=== PATIENT | female | born 1990 | race Caucasian/White ===

== ENCOUNTER 2017-02-08 06:11 | Inpatient (IN) | payer BC ==
[2017-02-08] MEDS ORDERED: LIDOCAINE HCL 50 ML VIAL PERI PRN (07:13)
[2017-02-08] MEDS ORDERED: OXYTOCIN/DEXTROSE 5%-WATER 30 UNITS/500 ML BAG IV ONE ×2 (07:13→17:21)
[2017-02-08] MEDS ORDERED: RINGERS SOLUTION,LACTATED 1,000 ML IV ONE (07:13)
[2017-02-08] MEDS: DEXTROSE 5%-LACTATED RINGERS 1,000 ML IV PRN ×2 (07:49→12:57)
--- NOTE | 2017-02-08 11:51 | PN ---
Progess Note - Interim Narrative: 02/08/17 11:48 Patient tolerating contractions well Vital signs stable. Pitocin at 12 mu/min. FHT: 135 baseline, reassuring Contractions q 2-3 min Cervix: 4/90/-2, AROM-clear at 1050. Impression: Intrauterine at 40 1/7 weeks elective induction of labor Plan: Continue present plan
[2017-02-08] MEDS ORDERED: BUPIVACAINE HCL/0.9 % NACL/PF 250 ML EP PRN (12:23)
[2017-02-08] MEDS ORDERED: BUPIVACAINE HCL/PF 30 ML VIAL EP ONE (12:23)
[2017-02-08] MEDS ORDERED: ONDANSETRON HCL/PF 2 MG/ML VIAL IV PRN (12:23)
[2017-02-08] MEDS ORDERED: NALOXONE HCL 1 MG/1 ML SYRG IV PRN (12:23)
--- NOTE | 2017-02-08 12:47 | OR ---
Anesthesia Procedure Note - Anesthesia Procedure Note Date of Service: 02/08/17 Narrative: Vital Signs - Last Taken Temp 37.3 C 02/08/17 12:25 Pulse 65 02/08/17 12:25 Resp 18 02/08/17 12:25 BP 138/73 02/08/17 12:25 Pulse Ox 100 02/08/17 12:25 02/08/17 12:47 ANESTHESIA PROCEDURE NOTE Date of Procedure: 02/08/2017. Time of procedure: 1230. Performed by: Hero Fabian CRNA Mgmt Specialist: None. Preprocedure diagnosis: Active labor. Post procedure diagnosis: Same. Procedure: Insertion of labor epidural. Indications: The patient is a 26 -year-old female in active labor requesting labor epidural for pain management. Findings: See below. Details of the procedure: The patient was placed in a sitting position. DuraPrep as well as Betadine swabs 3 was applied to the patient's back. Patient was then draped in a sterile fashion. Lidocaine 1% was infiltrated to the skin and subcutaneous tissues at the level of the L3 4 interspace. The epidural space was identified using a 18-gauge Tuohy needle with loss-of- resistance technique. Epidural catheter was inserted to a depth of 13 centimeters at skin. Negative test dose was elicited using 3 mL of 1.5% preservative-free lidocaine plus epinephrine 1 200,000. The epidural catheter was then taped and secured in place. A loading dose of 8 mL of 0.25% preservative-free bupivacaine was administered to the epidural catheter after negative aspiration for blood and CSF. EBL: Minimal. Fluids: N/A. Specimen: N/A. Post procedure condition: The patient tolerated the procedure well. No complications were noted. Thank you for this consultation. Hero Fabian CRNA
[2017-02-08] MEDS ORDERED: SENNOSIDES 8.6 MG TABLET PO PRN (17:21)
[2017-02-08] MEDS ORDERED: BISACODYL 10 MG SUPP.RECT RC PRN (17:21)
[2017-02-08] MEDS ORDERED: GLYCERIN/WITCH HAZEL LEAF 40 APPL BOX TP PRN (17:21)
[2017-02-08] MEDS ORDERED: HYDROCORTISONE 30 APPL TUBE TP PRN (17:21)
[2017-02-08] MEDS ORDERED: BENZOCAINE/MENTHOL 81 SPRAY CAN TP PRN (17:21)
[2017-02-08] MEDS ORDERED: oxyCODONE HCL/ACETAMINOPHEN 1 TAB TABLET PO PRN ×2 (17:21)
--- NOTE | 2017-02-08 17:23 | OR ---
Operative Report - Dictated Report Narrative: Spontaneous vaginal delivery of viable female in MATT position at 1703 on 02/08/2017 with Apgars 8 and 9, weighing 3486 g area nuchal cord 1 reduced with delivery of head. Cord clamping delayed approximately 1 minute Placenta delivered complete, intact, with three vessel cord Estimated blood loss: less than 50 ml Lacerations: Bilateral first-degree labial abrasion/laceration with no repair needed History for MU Definition: * The number of deliveries resulting in a live the patient experienced prior to current hospitalization * The previous delivery of live twins or any live multiple gestation is considered one live event. *If primagravida or nulliparous is documented select zero for the number of previous live births. Live Events: 0
[2017-02-08] MEDS: IBUPROFEN 800 MG TABLET PO PRN (18:59)
[2017-02-08] MEDS: DOCUSATE SODIUM 100 MG CAPSULE PO SCH (21:53)
[2017-02-09] MEDS: ASCORBIC ACID 500 MG TABLET PO SCH (08:16)
[2017-02-09] MEDS: PRENATAL VIT#96/FERROUS FUM/FA 1 TAB TABLET PO SCH (08:16)
[2017-02-09] MEDS: CYANOCOBALAMIN 1,000 MCG TABLET PO SCH (08:16)
[2017-02-09] MEDS: DOCUSATE SODIUM 100 MG CAPSULE PO SCH (08:16)
--- NOTE | 2017-02-09 09:24 | PN ---
Subjective - Date and Time Seen Date: 02/09/17 Time: 09:23 Objective - Vitals Vitals: Last Vital Signs Temp 36.6 C 02/09/17 07:37 Pulse 67 02/09/17 07:37 Resp 18 02/09/17 07:37 BP 140/67 02/09/17 07:37 Pulse Ox 100 02/09/17 07:37 Patient denies complaints. Lochia wnl Abdomen - soft, nontender Uterus - firm, at umbilicus - 1 No calf tenderness Impression: day #1 - s/p spontaneous vaginal delivery. Plan: Continue routine care
[2017-02-09] MEDS: IBUPROFEN 800 MG TABLET PO PRN (18:54)
[2017-02-10] MEDS: DOCUSATE SODIUM 100 MG CAPSULE PO SCH ×2 (00:46→09:00)
[2017-02-10] MEDS: IBUPROFEN 800 MG TABLET PO PRN ×2 (00:56→07:30)
[2017-02-10 07:18] VITALS: BP 117/84
[2017-02-10] MEDS: ASCORBIC ACID 500 MG TABLET PO SCH (09:00)
[2017-02-10] MEDS: CYANOCOBALAMIN 1,000 MCG TABLET PO SCH (09:01)
[2017-02-10] MEDS: PRENATAL VIT#96/FERROUS FUM/FA 1 TAB TABLET PO SCH (09:01)
== END 2017-02-10 15:50 | disposition home or self-care (01) | DRG 775 ==
LOC: OB 06:11
PROVIDERS: ADMIT Obstetrics & Gynecology; ATTEND Obstetrics & Gynecology
PROC: 10E0XZZ Delivery of Products of Conception, External Approach (ICD-10-PCS; principal; 2017-02-08)
PROC: 3E033VJ Introduction of Other Hormone into Peripheral Vein, Percutaneous Approach (ICD-10-PCS; 2017-02-08)
PROC: 10907ZC Drainage of Amniotic Fluid, Therapeutic from Products of Conception, Via Natural or Artificial Opening (ICD-10-PCS; 2017-02-08)
PROC: 4A1HXCZ Monitoring of Products of Conception, Cardiac Rate, External Approach (ICD-10-PCS; 2017-02-08)
PROC: 3E0S3CZ (ICD-10-PCS; 2017-02-08)
DX: O69.81X0 Labor and delivery complicated by cord around neck, without compression, not applicable or unspecified (principal); O70.0 First degree perineal laceration during delivery; Z3A.40 40 weeks gestation of pregnancy; Z37.0 Single live birth

== ENCOUNTER 2017-04-09 16:36 | Emergency (ER) | payer BC ==
[2017-04-09] MEDS ORDERED: IBUPROFEN 600 MG TABLET PO ONE (17:01)
--- NOTE | 2017-04-09 17:02 | ERNOTE ---
ER Female HPI Date of Service: 04/09/17 Stated Complaint: ABD PAIN - IUD ISSUE ?? Time Seen by Provider: 04/09/17 16:49 Source: patient, RN notes reviewed, past records Exam Limitations: no limitations Immunizations: IMMUNIZATION HX Immunizations Up to Date Yes History of Influenza Vaccine No Allergies/Adverse Reactions: Allergies No Known Allergies Allergy (Verified 04/09/17 16:43) Home Medications: HOME MEDICATIONS Escitalopram Oxalate [Lexapro] 10 mg PO DAILY 04/09/17 [Last Taken Unknown] Ibuprofen [Motrin] 600 mg PO Q6H PRN #40 tab 04/09/17 [Last Taken Unknown] Nitrofurantoin Macrocrystal [Nitrofurantoin] 100 mg PO BID #10 capsule 04/09/17 [Last Taken Unknown] - History of Present Illness Narrative: 26 y/o female ambulatory to the ED for pelvic pain and bleeding that has been ongoing since she had a Mirena inserted on 03/10/17. Her pain became so severe today that she vomited. She was 1 month post- when the IUD was placed. She reports being sexually active twice in the past month with the last time being 4 days ago. She last took ibuprofen for pain around 0900 this morning. Timing: Present: constant Quality: Present: severe, cramping Onset Location: Present: suprapubic, vaginal Radiation: Present: none Prior Abdominal Problems: Present: none Sexual [place] History: Present: less than 2 months ago, single partner Associated Symptoms: Present: diaphoresis, nausea, vomiting. Absent: fever/ chills, dysuria, urinary frequency, low back pain Review of Systems - Review of Systems Constitutional: Absent: fever, chills EYE: Present: no symptoms reported ENT: Present: no symptoms reported Respiratory: Present: no symptoms reported Cardiology: Present: no symptoms reported Gastrointestinal/Abdominal: Present: nausea, vomiting. Absent: diarrhea, constipation, abdominal pain, eating less, drinking less Genitourinary: Present: pain. Absent: frequency, dysuria, decreased urinary output, discharge Musculoskeletal: Absent: back pain, muscle pain Skin: Absent: rash, lesions, lumps Neurological: Absent: headache, dizziness/light-headedness, weakness Endocrine: Present: no symptoms reported Hematologic/Lymphatic: Absent: easy bruising, easy bleeding Psych: Present: depressed - Patient's Past Medical History Patient History - Medical: Depression, Migraines, Obesity Patient History - Cardiac/Respiratory: No pertinent hx Patient History - Cancer: No Hx of Cancer Patient History - Surgical Procedures: Ear Tubes, T & A LMP (Calendar): 03/16/17 - Social History Living Situations: home Abuse History: No History of abuse Psych History: No pertinent hx Smoking Status: Never smoker Have you smoked in the past 12 months: No Alcohol Use: none Drug Use: none - Immunizations Immunizations Up to Date: Yes History of Influenza Vaccine: No Physical Exam - Physical Exam General Appearance: Present: alert, no apparent distress, anxious, obese Eye Exam: Normal inspection: bilateral Neck: Present: normal inspection, nontender, supple Respiratory: Present: no respiratory distress, normal breath sounds, no accessory muscle use, lungs clear Cardiovascular/Chest: Present: regular rate, rhythm, no murmur Gastrointestinal/Abdominal: Present: normal bowel sounds, nontender, nondistended, soft. Absent: guarding, rebound, mass Back Exam: Present: normal inspection, no CVA tenderness Extremity Exam: Present: normal inspection, normal range of motion, no edema Neurological Exam: Present: alert, oriented, normal mood/affect Skin Exam: Present: normal color, warm/dry ED Progress - Results and Orders Patient's Lab Results:: I have reviewed the patient's lab results. - Vital Signs Patient's Vital Signs:: I have reviewed the patient's vital signs. Vital Signs: Vital Signs 04/09/17 16:40 Temperature 36.7 C Pulse Rate 68 Respiratory 14 Rate Blood Pressure 128/87 O2 Sat by Pulse 98 Oximetry - CT/Ultrasound CT/Ultrasound Narrative: US Pelvic Complete *, US Transvaginal * Transabdominal Pelvic Ultrasound: Uterus: 8.6 cm in length by 4.8 cm AP by 6.3 cm transverse. Anteverted. No focal uterine mass. It was difficult to visualize the endometrial stripe or to visualize the IUD positively within the endometrial canal. Therefore, transvaginal imaging was performed. Right ovary: 2.8 x 2.8 x 3.1 cm. No dominant cystic or solid mass. Left ovary: Not visualized. Most likely obscured by bowel gas Transvaginal Pelvic Ultrasound: Uterus: 9.5 cm in length by 4.8 cm AP by 5.8 cm transverse. Endometrial stripe/canal is obscured by echogenic linear structure with posterior shadowing consistent with an IUD/foreign body, with the transversely oriented limbs located at the level of the fundus. There is no definite signs of malpositioning of the IUD. Right ovary: 3.5 x 3.3 x 2.7 cm. Ovarian volume of 16.7 mL. No dominant cystic or solid mass. Left ovary: 2.4 x 2.8 x 1.9 cm. Ovarian volume of 6.7 mL. No dominant cystic or solid mass. No free fluid in the cul-de-sac. Color imaging of the ovaries demonstrate pulsatile flow documented bilaterally. IMPRESSION: 1. IUD identified on transvaginal imaging within the endometrial canal, without definite signs of malposition. 2. Transabdominal imaging was limited as above. 3. Asymmetric, mildly enlarged right ovary, without definable focal lesion. 4. No sonographic evidence for acute ovarian torsion. 5. Overall unremarkable examination otherwise. Electronically signed by Rajiv Bull M.D.. Approved by: Approval Date: 04-09-2017 Approval Time: 05:45 PM - Progress/Reassessment Chief Complaint: Genitourinary Problem Progress:: Improved Plan - Plan Plan: CBC and CMP unremarkable, negative HCG, US shows IUD in appropriate position without any other significant findings, UA does show possible UTI - will start antibiotic for this with culture pending. Discussed results with patient - her ongoing cramping may be worsened by her UTI. 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 Departure Clinical Impression: Pelvic pain, Cystitis - Departure Disposition: Home Follow Up Needed Condition: Stable Instructions: Urinary Tract Infection, Adult, [id number] Additional Instructions: See Dr. Dye as scheduled or return if symptoms worsen as discussed Take ibuprofen routinely for the next few days Take all of your antibiotic unless you are instructed not to Drink plenty of water Referrals: Rodrigo Dye DO [Staff Physician] - Prescriptions: Ibuprofen [Motrin] 600 mg PO Q6H PRN #40 tab PRN Reason: Pain Nitrofurantoin Macrocrystal [Nitrofurantoin] 100 mg PO BID #10 capsule
[2017-04-09 17:14] LABS: Hematocrit 39.4 % (37.0-47.0); Hemoglobin 13.1 gm/dL (12.5-16.0); Mean Cell Volume 86.6 fl (78-100); Mean Corpuscular Hemoglobin 28.8 pg (27-31); Mean Corpuscular Hgb Conc 33.2 g/dl (32-36); Mean Platelet Volume 10.4 fl (6.0-9.5); Neutrophil # 4.4 K/mm3 (1.3-6.0); Neutrophil % 65.4 % (42-75.0); Platelet Count 267 K/mm3 (150-450); Red Blood Count 4.55 M/mm3 (4.2-5.4); White Blood Count 6.8 K/mm3 (4.0-10.5)
[2017-04-09] MEDS ORDERED: IBUPROFEN 600 MG TABLET ONE (17:27)
[2017-04-09 17:30] LABS: Albumin * 3.8 gm/dl (3.4-5.0); Anion Gap 11.1 mmol/L (6.8-13.8); BUN/Creatinine Ratio 18.2 (9.0-21.6); Bilirubin, Total 0.7 mg/dL (0.0-1.1); Ca. Corrected For Albumin 8.5 mg/dL (8.4-10.2); Calcium * 8.7 mg/dL (7.9-10.9); Potassium 4.1 mmol/L (3.4-4.6); Total Protein 7.2 gm/dL (6.2-8.2)
[2017-04-09 17:39] LABS: Urine Bilirubin Negative (NEGATIVE); Urine Blood 250 /ul (NEGATIVE); Urine Ketone Negative (NEGATIVE); Urine Nitrite Negative (NEGATIVE); Urine Protein Negative (NEGATIVE); Urine Specific Gravity 1.025 SP.GR. (1.005-1.010); Urine Urobilinogen Normal (NORMAL)
[2017-04-09 17:50] LABS: Urine Appearance Clear; Urine Bacteria 1+; Urine Color Yellow; Urine RBC >50 /hpf (0-5); Urine WBC 0-5 /hpf (0-5)
[2017-04-09] MEDS ORDERED: NITROFURANTOIN/NITROFURAN MAC 100 MG CAPSULE PO ONE (19:03)
[2017-04-09] MEDS ORDERED: NITROFURANTOIN/NITROFURAN MAC 100 MG CAPSULE ONE (19:08)
[2017-04-09 19:12] VITALS: BP 109/75
== END 2017-04-09 19:15 | disposition home or self-care (01) ==
LOC: ER 16:36
DX: R10.2 Pelvic and perineal pain (principal); N30.90 Cystitis, unspecified without hematuria